=== PATIENT | female | born 1950 | race Caucasian/White ===

== ENCOUNTER 2018-11-17 07:45 | Inpatient (IN) | payer MEDICARE ==
[~2018-11-17] VITALS: Ht 160 cm; Wt 76.9 kg
[~2018-11-17 07:45] MED LIST: ALBU3IS INH; ALBU4; AMLO10 PO; ASPI81CH PO; Accuneb1.25 MG/3 INH; BENZ100A PO; CHLO25B PO; CIFEREX 3,7751 EACH PO; DILTIAZEM 24HR180 MG PO; DULERA 200 MCG/13 GM INH; FLUSAL2505 INH; Hair, Skin & N1 EACH PO; IRBE150 PO; LANS15EC; METO50ER PO; NICO21TP TOP; Omeprazole20 M1 PO; PRED1 PO; Prednisone20 MG PO; ROPI2 PO; SIMV10 PO; TIOT18 INH; Vitamin C100 M1 PO; ZESTORETIC 20-121 EA PO; Zithromax250 MG PO
[2018-11-17 08:14] LABS: BASOPHILS ABSOLUTE AUTO 0.06 K/mm3 (0.00-0.23); BASOPHILS PERCENT AUTO 1 % (0-2); EOSINOPHILS ABSOLUTE AUTO 0.19 K/mm3 (0.00-0.68); EOSINOPHILS PERCENT AUTO 2 % (0-6); Hematocrit 45.2 % (33.0-51.0); Hemoglobin 14.9 g/dL (11.5-16.0); IMMATURE GRAN ABSOLUTE AUTO 0.04 K/mm3 (0.00-0.10); IMMATURE GRAN PERCENT AUTO 0 % (0-1); LYMPHOCYTES ABSOLUTE AUTO 2.35 K/mm3 (0.84-5.20); LYMPHOCYTES PERCENT AUTO 20 % (21-46); MONOCYTES ABSOLUTE AUTO 0.77 K/mm3 (0.16-1.47); MONOCYTES PERCENT AUTO 6 % (4-13); Mean Corpuscular HGB 28.9 pg (26.0-34.0); Mean Corpuscular Volume 88 fL (80-100); Mean Platelet Volume 10.6 fL (9.1-12.4); NEUTROPHILS ABSOLUTE AUTO 8.57 K/mm3 (1.96-9.15); NEUTROPHILS PERCENT AUTO 72 % (41-73); Platelet Count 290 K/mm3 (150-400); RDW Coefficient Variation 13.1 % (11.7-14.2); RDW Standard Deviation 42.5 fL (35.1-46.3); Red Blood Cell Count 5.15 M/mm3 (3.80-5.20); White Blood Cell Count 11.98 K/mm3 (4.00-11.30)
[2018-11-17 08:27] LABS: Alanine Aminotransfer (ALT/SGP 31 U/L (12-78); Albumin, Blood 4.3 g/dL (3.4-5.0); Albumin/Globulin Ratio 1.2 (0.8-1.8); Alk Phos 130 U/L (50-136); Anion Gap 10 mmol/L (6-16); Aspartate Aminotrans (AST/SGOT 22 U/L (12-37); Bilirubin, Total 0.3 mg/dL (0.1-1.0); Blood Urea Nitrogen 12 mg/dL (8-24); CO2, Blood 22 mmol/L (21-32); Calcium, Blood 9.1 mg/dL (8.5-10.1); Chloride, Blood 103 mmol/L (98-108); Creatinine, Blood 0.52 mg/dL (0.40-1.00); Globulin, Blood 3.7 g/dL (2.2-4.0); Glomerular Filtration Rate >60 (60-); Glucose, Blood 138 mg/dL (70-99); Potassium, Blood 4.2 mmol/L (3.5-5.5); Sodium, Blood 135 mmol/L (136-145); Troponin I <0.015 ng/mL (0.000-0.040)
[2018-11-17] MEDS ORDERED: Ropinirole HCl3 MG PO (09:29)
[2018-11-17] MEDS ORDERED: Tessalon200 MG PO (09:30)
[2018-11-17] MEDS ORDERED: DILT180ER PO (09:30)
[2018-11-17 09:55] LABS: Base Excess Venous -2.9 mmol/L; Bicarbonate Venous 22.5 mmol/L (24.0-30.0); PCO2 Venous 36.6 mmHg (38-42); PO2 Venous 182 mmHg (38-42); pH Blood Venous 7.39 (7.34-7.37)
[2018-11-17] MEDS ORDERED: VITAMIN B-121000 MCG PO (13:07)
--- NOTE | 2018-11-17 16:55 | NUR ---
SHIFT SUMMARY Assumed care of pt upon arrival to unit at 1024. Pt arrived wearing BiPAP. Pt given a 15 minute break, and then she requested the BiPAP again. Pt wore BiPAP for another two hours and has been off BiPAP since. Currently on 2 LPM NC. Respirations even and unlabored. Pt OOB several times to use commode. Tolerates activity well. Sinus tachycardia per telemetry. Dr Norman aware. Bed in lowest position. Call light in reach. Will continue to closely monitor until care handoff and bedside report with oncoming RN.
--- NOTE | 2018-11-18 01:03 | NUR ---
CODE STATUS WHEN ATTEMPTING TO PLACE DNR BAND AND VERIFY CODE STATUS WITH PATIENT, SHE STATED THAT SHE WOULD LIKE ALL INTERVENTIONS EXCEPT INTUBATION IF SHE CODES. PATIENT UNDERSTANDS THAT CPR, MEDICATIONS, AND DEFIBRILLATION WILL BE PROVIDED IF SHE CODES, BUT SHE WILL NOT BE INTUBATED- PT VERBALIZES UNDERSTANDING. DR ERICKSON CONTACTED AND CODE STATUS CHANGED TO REFLECT PATIENT'S WISHES. PT ALSO REPORTS THAT HER IRBESARTAN IS TAKEN AT NIGHT WITH A DOSE OF 150 MG. ORDER ALSO CHANGED TO REFLECT PATIENT'S MED RECONCILIATION.
--- NOTE | 2018-11-18 06:16 | NUR ---
SHIFT SUMMARY- PT HAS REMAINED AOX4 THROUGHOUT SHIFT. VSS. PLEASANT AND COOPERATIVE WITH CARE. CONTINUES TO AMBULATE WITH ONE PERSON ASSIST TO THE BEDSIDE COMMODE. PT HAS RESTED WELL THROUGHOUT MUCH OF THE SHIFT WITH BIPAP IN PLACE. BIPAP SETTINGS HAVE REMAINED AT 10/6 25% FIO2. O2 SATS HAVE REMAINED >90% WITH BIPAP OR 2L VIA NASAL CANNULA IN PLACE. PT WITH SLIGHT EXERTIONAL DYSPNEA WHEN AMBULATING, BUT O2 SATS MAINTAINED >90% THROUGHOUT WITH PURSED LIP BREATHING TECHNIQUES. NO OTHER CHANGES NOTED FROM INITIAL ASSESSMENT. WILL CONTINUE TO MONITOR AND REPORT TO ONCOMING RN. BED IN LOWEST POSITION, CALL LIGHT IN REACH.
--- NOTE | 2018-11-18 09:55 | NUR ---
BEGINNING OF SHIFT Assumed care at 0700. Report recieved from Yany STEPHENSON. Pt on 2 LPM NC since beginning of shift. Pt verbalizes desire to take a shower today. Will continue to assess pt's respiratory effort. Call placed to Dr Larson for pt request for new nicotine patch. Bed in lowest position. Call light in reach. Pt denies need at this time.
[2018-11-18 10:17] LABS: BASOPHILS ABSOLUTE AUTO 0.01 K/mm3 (0.00-0.23); BASOPHILS PERCENT AUTO 0 % (0-2); EOSINOPHILS PERCENT AUTO 0 % (0-6); Hematocrit 39.2 % (33.0-51.0); Hemoglobin 13.1 g/dL (11.5-16.0); IMMATURE GRAN ABSOLUTE AUTO 0.06 K/mm3 (0.00-0.10); IMMATURE GRAN PERCENT AUTO 0 % (0-1); LYMPHOCYTES ABSOLUTE AUTO 1.23 K/mm3 (0.84-5.20); LYMPHOCYTES PERCENT AUTO 9 % (21-46); MONOCYTES ABSOLUTE AUTO 0.59 K/mm3 (0.16-1.47); MONOCYTES PERCENT AUTO 4 % (4-13); Mean Corpuscular HGB 29.2 pg (26.0-34.0); Mean Corpuscular HGB Conc 33.4 g/dL (31.5-36.5); Mean Corpuscular Volume 87 fL (80-100); NEUTROPHILS PERCENT AUTO 86 % (41-73); Platelet Count 289 K/mm3 (150-400); RDW Coefficient Variation 13.2 % (11.7-14.2); RDW Standard Deviation 42.1 fL (35.1-46.3); Red Blood Cell Count 4.49 M/mm3 (3.80-5.20); White Blood Cell Count 13.49 K/mm3 (4.00-11.30)
[2018-11-18 10:43] LABS: Alanine Aminotransfer (ALT/SGP 26 U/L (12-78); Albumin, Blood 3.8 g/dL (3.4-5.0); Albumin/Globulin Ratio 1.2 (0.8-1.8); Alk Phos 105 U/L (50-136); Anion Gap 11 mmol/L (6-16); Aspartate Aminotrans (AST/SGOT 19 U/L (12-37); Bilirubin, Total 0.3 mg/dL (0.1-1.0); Blood Urea Nitrogen 20 mg/dL (8-24); Bun/Creatinine Ratio 30.7 (12.0-20.0); CO2, Blood 22 mmol/L (21-32); Calcium, Blood 9.4 mg/dL (8.5-10.1); Chloride, Blood 100 mmol/L (98-108); Creatinine, Blood 0.65 mg/dL (0.40-1.00); Globulin, Blood 3.3 g/dL (2.2-4.0); Glomerular Filtration Rate >60 (60-); Glucose, Blood 210 mg/dL (70-99); Potassium, Blood 4.2 mmol/L (3.5-5.5); Sodium, Blood 133 mmol/L (136-145); Total Protein, Blood 7.1 g/dL (6.4-8.2)
--- NOTE | 2018-11-18 14:52 | NUR ---
UPDATE Pt wore BiPAP for 1.5 hours and then took shower. Tolerated shower fair. Pt has not worn BiPAP since. Pt verbalized concern that she saw a recall for irbesartan on the news. She also mentioned this concern to Dr Larson. This RN spoke to pharmacist, Pardeep, who stated hospital supply is not affected by the recall. Update given to pt and Dr Larson. Pt remains on 2 LPM NC. Remains sinus tachycardia per telemetry.
--- NOTE | 2018-11-18 18:05 | NUR ---
SHIFT SUMMARY No additional changes since last note. Pt resting in bed at this time. Will continue to closely monitor until care handoff and bedside report with oncoming RN.
[2018-11-19 05:48] LABS: BASOPHILS ABSOLUTE AUTO 0.02 K/mm3 (0.00-0.23); BASOPHILS PERCENT AUTO 0 % (0-2); EOSINOPHILS PERCENT AUTO 0 % (0-6); Hematocrit 40.3 % (33.0-51.0); IMMATURE GRAN ABSOLUTE AUTO 0.12 K/mm3 (0.00-0.10); IMMATURE GRAN PERCENT AUTO 1 % (0-1); LYMPHOCYTES PERCENT AUTO 7 % (21-46); MONOCYTES ABSOLUTE AUTO 0.65 K/mm3 (0.16-1.47); MONOCYTES PERCENT AUTO 3 % (4-13); Mean Corpuscular HGB 28.8 pg (26.0-34.0); Mean Corpuscular HGB Conc 32.3 g/dL (31.5-36.5); Mean Corpuscular Volume 89 fL (80-100); Mean Platelet Volume 10.7 fL (9.1-12.4); NEUTROPHILS ABSOLUTE AUTO 17.79 K/mm3 (1.96-9.15); NEUTROPHILS PERCENT AUTO 90 % (41-73); Platelet Count 293 K/mm3 (150-400); RDW Coefficient Variation 13.2 % (11.7-14.2); RDW Standard Deviation 43.3 fL (35.1-46.3); Red Blood Cell Count 4.52 M/mm3 (3.80-5.20); White Blood Cell Count 19.88 K/mm3 (4.00-11.30)
[2018-11-19 06:18] LABS: Alanine Aminotransfer (ALT/SGP 32 U/L (12-78); Albumin, Blood 3.7 g/dL (3.4-5.0); Albumin/Globulin Ratio 1.1 (0.8-1.8); Alk Phos 103 U/L (50-136); Anion Gap 9 mmol/L (6-16); Aspartate Aminotrans (AST/SGOT 27 U/L (12-37); Bilirubin, Total 0.2 mg/dL (0.1-1.0); Blood Urea Nitrogen 25 mg/dL (8-24); Bun/Creatinine Ratio 40.4 (12.0-20.0); CO2, Blood 24 mmol/L (21-32); Calcium, Blood 9.2 mg/dL (8.5-10.1); Chloride, Blood 102 mmol/L (98-108); Creatinine, Blood 0.62 mg/dL (0.40-1.00); Globulin, Blood 3.3 g/dL (2.2-4.0); Glomerular Filtration Rate >60 (60-); Glucose, Blood 149 mg/dL (70-99); Potassium, Blood 4.7 mmol/L (3.5-5.5); Sodium, Blood 135 mmol/L (136-145)
--- NOTE | 2018-11-19 07:16 | NUR ---
SHIFT SUMMARY- PT HAS REMAINED AOX4 THROUGHOUT SHIFT. VSS. PLEASANT AND COOPERATIVE WITH CARE. O2 SATS HAVE REMAINED >90% ON 1L VIA NASAL CANNULA. PT WITH SLIGHT DESATURATION WITH AMBULATION TO THE RESTROOM TO 87-89%, BUT RECOVERS TO >90% WITHIN 1 MINUTE OF REST AND PURSED LIP BREATHING TECHNIQUES. PT REPORTS THAT SHE FEELS THAT HER BREATHING HAS IMPROVED SIGNIFICANTLY SINCE YESTERDAY. PT CONTINUES TO AMBULATE WITH STANDBY ASSIST AND FWW PER HER REQUEST. NO OTHER CHANGES NOTED FROM INITIAL ASSESSMENT. WILL CONTINUE TO MONITOR AND REPORT TO ONCOMING RN. BED IN LOW POSITION, CALL LIGHT IN REACH.
--- NOTE | 2018-11-19 09:26 | NUR ---
BEGINNING OF SHIFT Assumed care of pt at 0700. Report received from Yany STEPHENSON. Pt on 2 LPM [place]. Pt has not worn BiPAP since yesterday morning. Pt OOB to use bathroom. Tolerated activity well. Per Yany RN, pt had questions about code status. This RN informed Ruthie from palliative care that pt would like in-depth discussion about code status. Bed in lowest position. Call light in reach. Pt denies need at this time.
--- NOTE | 2018-11-19 14:38 | NUR ---
Initial Visit: Palliative care received consult for AD/POLST. Pt is alert, oriented. Reviewed current code status (FULL). Discussed intubation, chest compressions, non-invasive airway, PEG tube placement and artificial nutrition. Pt expresses that the doctor was talking to her about that earlier. She feels strongly that she does not want to be intubated, however, she states that chest compressions, defibrilation, artificial nutrition, and non-invasive airway support is ok. Assisted patient to fill out POLST form. She accepts chest compressions that are part of CPR. She accepts limited treatments, and prison artificial nutrition. POLST is filled out and placed in the patient's chart. Reviewed with nurse Kasandra. She is aware POLST is in chart, waiting for doctor review and signature. Call placed to Dr. Larson. Informed of conversation and notified of paperwork in chart that requires signature. Will remain available.
--- NOTE | 2018-11-19 19:38 | NUR ---
SHIFT SUMMARY No acute changes since shift assessment. Pt remains on 2 LPM NC. Pt OOB several times today to use bathroom. Tolerates activity well. No events per telemetry. At this time, pt is medical floor status with telemetry. Report given to oncoming RNYany.
--- NOTE | 2018-11-19 23:30 | NUR ---
PATIENT TRANSFTER PT CURRENTLY AOX4, VSS, ABLE TO TRANSFER WITH STANDBY ASSIST. O2 SATS OF 93% ON 2L VIA NASAL CANNULA. REPORT CALLED TO SEEMA REESE. PT TAKEN TO ROOM 337 VIA WHEELCHAIR BY MILES RITCHIE.
--- NOTE | 2018-11-19 23:36 | NUR ---
PT TRANSFER TOMED FLOOR FROM PCU. I AGREE WITH PRIOR ASSESSMENTS.
[2018-11-20 05:36] LABS: BASOPHILS ABSOLUTE AUTO 0.03 K/mm3 (0.00-0.23); BASOPHILS PERCENT AUTO 0 % (0-2); EOSINOPHILS PERCENT AUTO 0 % (0-6); Hematocrit 39.8 % (33.0-51.0); IMMATURE GRAN ABSOLUTE AUTO 0.22 K/mm3 (0.00-0.10); IMMATURE GRAN PERCENT AUTO 1 % (0-1); LYMPHOCYTES ABSOLUTE AUTO 1.23 K/mm3 (0.84-5.20); LYMPHOCYTES PERCENT AUTO 7 % (21-46); MONOCYTES ABSOLUTE AUTO 0.72 K/mm3 (0.16-1.47); MONOCYTES PERCENT AUTO 4 % (4-13); Mean Corpuscular HGB 28.9 pg (26.0-34.0); Mean Corpuscular HGB Conc 32.7 g/dL (31.5-36.5); Mean Corpuscular Volume 88 fL (80-100); Mean Platelet Volume 11.2 fL (9.1-12.4); NEUTROPHILS PERCENT AUTO 88 % (41-73); Platelet Count 306 K/mm3 (150-400); RDW Coefficient Variation 13.2 % (11.7-14.2); RDW Standard Deviation 43.2 fL (35.1-46.3)
[2018-11-20 05:45] LABS: Anion Gap 9 mmol/L (6-16); Blood Urea Nitrogen 20 mg/dL (8-24); Bun/Creatinine Ratio 34.2 (12.0-20.0); CO2, Blood 25 mmol/L (21-32); Calcium, Blood 9.1 mg/dL (8.5-10.1); Chloride, Blood 102 mmol/L (98-108); Creatinine, Blood 0.59 mg/dL (0.40-1.00); Glomerular Filtration Rate >60 (60-); Glucose, Blood 160 mg/dL (70-99); Potassium, Blood 4.6 mmol/L (3.5-5.5); Sodium, Blood 136 mmol/L (136-145)
--- NOTE | 2018-11-20 06:40 | NUR ---
SHIFT SUMMARY: PT PCU TRANSFER EARLIER IN SHIFT. A&O X 4, INDEPEDENT IN ROOM. ON 2L VIA NC. PT HAS EXTREME COUGHING FITS THAT LAST SEVERAL MINUTES AND CAUSE HIGH BP. SINUS TACH IN 90-100s PER MOISTURE TESTER. 20 G TO L FOREARM SALINE LOCKED. DENIES ACUTE SOB, PT STATES FEELING "ALOT BETTER" AND "READY TO HEAD HOME". WILL CONT TO MONITOR AND PROVIDE CARE UNTIL PRESUMED BY ONCOMING RN.
[2018-11-20] MEDS ORDERED: [UNRECOGNIZED DRUG - CODE] PO (12:54)
[2018-11-20] MEDS ORDERED: LEVFLO500 PO (12:55)
[2018-11-20] MEDS ORDERED: NICO21TP TOP (12:55)
[2018-11-20] MEDS ORDERED: PRED10 PO (12:56)
--- NOTE | 2018-11-20 15:09 | NUR ---
DISCHARGE PT STATE CONTINUING SHORTNESS OF BREATH WITH EXERTION OR COUGH. LUNGS DECREASED WITH RLLEXP WHEEZE, O2 @ 2L BIOX >90%. SHE STATE BREATHING HAS IMPROVED, HOME O2 EVAL COMPLETED & SHE IS HOPEFUL TO GO HOME, STATE HER DAUGHTER WILL BE IN @ 1100 TO PROVIDE TRANSPORT HOME. DR SHARMA & SONI FOLDING MACHINE OPERATOR DL IN TO SEE HER, STATE OK FOR D/C HOME, PLACE ORDERS. IV D/C INTACT. NEW SCR[facility]TS FA[facility]ED TO [facility]. D/C INSTRUCT REVIEWED WITH PT & HER DAUGHTER. [facility] DELIVER PORTABLE O2 @ 1515. CRISTINA PROVIDE W/C ESCORT FROM HOSP. PT IS PLEASANT/APPRECIATIVE.
== END 2018-11-20 15:09 | disposition home or self-care (01) | DRG 189 ==
LOC: ER 07:45 → PCU 08:40 → MEDS 10:20 → PCU 10:37 → MEDS 11-19 23:26 → ENPENDDIS 11-20 12:40 → MEDS 11-20 15:09
PROVIDERS: Family Medicine; Physician Assistant; ADMIT Internal Medicine
DX: J96.01 Acute respiratory failure with hypoxia (principal); J44.1 Chronic obstructive pulmonary disease with (acute) exacerbation; J44.0 Chronic obstructive pulmonary disease with (acute) lower respiratory infection; J20.9 Acute bronchitis, unspecified; I10 Essential (primary) hypertension; F17.210 Nicotine dependence, cigarettes, uncomplicated; Z66 Do not resuscitate; Z88.8 Allergy status to other drugs, medicaments and biological substances; Z79.82 Long term (current) use of aspirin; Z79.899 Other long term (current) drug therapy
CPT/HCPCS: 36415; 71045; 80048; 80053; 82803; 83605; 84484; 85025; 87040; 93005; 93010; 94640; 94660; 94760; 94761; 94762; 96365; 96375; 99285-25; J1650; J1956; J2920; J2930

== ENCOUNTER 2019-10-27 06:36 | Day surgery (SDC) | payer MEDICARE ==
[~2019-10-27] VITALS: Ht 160 cm; Wt 71.5 kg
[~2019-10-27 06:36] MED LIST changes: +Aspirin EC81 MG PO; +DILT180 PO; +DILT180ER PO; +FERSU300 PO; +LEVFLO500 PO; +LOSARTAN POTAS100 MG PO; +PRED10 PO; +PROAIR RESPICL90 MCG; +Requip3 MG PO; +Ropinirole HCl3 MG PO; +Simvastatin10 MG PO; +Tessalon200 MG PO; +VITAMIN B-121000 MCG PO; +VITAMIN D35000 UNI2 PO; +WIXELA 250-501 EACH INH; +[UNRECOGNIZED DRUG - CODE] PO
--- NOTE | 2019-10-27 09:16 | NUR ---
10/27/19 0915 Blanche Luong ANESTHESIA STUDENT MARIA ELENA WAS IN ROOM WITH DR FLORENCE THROUGHOUT THE PROCEDURE
== END 2019-10-27 09:58 | disposition home or self-care (01) ==
LOC: ORSCSDS 06:36
PROVIDERS: Student in an Organized Health Care Education/Training Program
PROC: 0DBL8ZX Excision of Transverse Colon, Via Natural or Artificial Opening Endoscopic, Diagnostic (ICD-10-PCS; principal; 2019-10-27 08:00)
PROC: 0DBM8ZX Excision of Descending Colon, Via Natural or Artificial Opening Endoscopic, Diagnostic (ICD-10-PCS; principal; 2019-10-27 08:00)
PROC: 0DBN8ZX Excision of Sigmoid Colon, Via Natural or Artificial Opening Endoscopic, Diagnostic (ICD-10-PCS; principal; 2019-10-27 08:00)
PROC: 0DBK8ZX Excision of Ascending Colon, Via Natural or Artificial Opening Endoscopic, Diagnostic (ICD-10-PCS; principal; 2019-10-27 08:00)
PROC: 0DBH8ZX Excision of Cecum, Via Natural or Artificial Opening Endoscopic, Diagnostic (ICD-10-PCS; principal; 2019-10-27 08:00)
DX: R19.5 Other fecal abnormalities (principal); D12.3 Benign neoplasm of transverse colon; D12.2 Benign neoplasm of ascending colon; K52.9 Noninfective gastroenteritis and colitis, unspecified; D12.0 Benign neoplasm of cecum; D12.4 Benign neoplasm of descending colon; D12.5 Benign neoplasm of sigmoid colon; K62.1 Rectal polyp; K64.8 Other hemorrhoids; I10 Essential (primary) hypertension; J44.9 Chronic obstructive pulmonary disease, unspecified; Z79.899 Other long term (current) drug therapy; F17.210 Nicotine dependence, cigarettes, uncomplicated; Z99.81 Dependence on supplemental oxygen; E78.5 Hyperlipidemia, unspecified; Z79.82 Long term (current) use of aspirin
CPT/HCPCS: 88305; J0171; J0330; J0461; J2370; J2405; J2704; J7120

== ENCOUNTER → 2019-11-17 | Outpatient (CLI) | payer MEDICARE | END | disposition home or self-care (01) | LOC: LAB EV 12:17 → LAB SHORT 12:17 | DX: N39.0 Urinary tract infection, site not specified (principal) | CPT/HCPCS: 87077; 87086; 87186 ==

== ENCOUNTER 2019-12-29 11:12 | Emergency (ER) | payer MEDICARE ==
[~2019-12-29] VITALS: Ht 160 cm; Wt 72.6 kg
[~2019-12-29 11:12] MED LIST changes: -Aspirin EC81 MG PO; -DILT180 PO; -LOSARTAN POTAS100 MG PO; -PROAIR RESPICL90 MCG; -Requip3 MG PO; -Simvastatin10 MG PO; -VITAMIN D35000 UNI2 PO; -WIXELA 250-501 EACH INH
[2019-12-29 12:30] LABS: BASOPHILS ABSOLUTE AUTO 0.04 K/mm3 (0.00-0.23); BASOPHILS PERCENT AUTO 0 % (0-2); EOSINOPHILS ABSOLUTE AUTO 0.02 K/mm3 (0.00-0.68); EOSINOPHILS PERCENT AUTO 0 % (0-6); Hemoglobin 13.7 g/dL (11.5-16.0); IMMATURE GRAN ABSOLUTE AUTO 0.05 K/mm3 (0.00-0.10); IMMATURE GRAN PERCENT AUTO 0 % (0-1); LYMPHOCYTES ABSOLUTE AUTO 1.24 K/mm3 (0.84-5.20); LYMPHOCYTES PERCENT AUTO 10 % (21-46); MONOCYTES ABSOLUTE AUTO 0.92 K/mm3 (0.16-1.47); MONOCYTES PERCENT AUTO 7 % (4-13); Mean Corpuscular HGB 28.6 pg (26.0-34.0); Mean Corpuscular HGB Conc 32.6 g/dL (31.5-36.5); Mean Corpuscular Volume 88 fL (80-100); Mean Platelet Volume 11.2 fL (9.1-12.4); NEUTROPHILS ABSOLUTE AUTO 10.17 K/mm3 (1.96-9.15); NEUTROPHILS PERCENT AUTO 82 % (41-73); Platelet Count 221 K/mm3 (150-400); RDW Coefficient Variation 13.4 % (11.7-14.2); RDW Standard Deviation 43.4 fL (35.1-46.3); Red Blood Cell Count 4.79 M/mm3 (3.80-5.20); White Blood Cell Count 12.44 K/mm3 (4.00-11.30)
[2019-12-29 12:52] LABS: Alanine Aminotransfer (ALT/SGP 34 U/L (12-78); Albumin, Blood 3.7 g/dL (3.4-5.0); Albumin/Globulin Ratio 1.2 (0.8-1.8); Alk Phos 104 U/L (50-136); Anion Gap 8 mmol/L (6-16); Aspartate Aminotrans (AST/SGOT 26 U/L (12-37); Bilirubin, Total 0.3 mg/dL (0.1-1.0); Blood Urea Nitrogen 8 mg/dL (8-24); Bun/Creatinine Ratio 15.7 (12.0-20.0); CO2, Blood 22 mmol/L (21-32); Calcium, Blood 9.1 mg/dL (8.5-10.1); Chloride, Blood 103 mmol/L (98-108); Creatinine, Blood 0.51 mg/dL (0.40-1.00); Glomerular Filtration Rate >60 (60-); Glucose, Blood 112 mg/dL (70-99); Sodium, Blood 133 mmol/L (136-145); Total Protein, Blood 6.7 g/dL (6.4-8.2)
[2019-12-29 13:09] LABS: Source, Urine Clean Catch
[2019-12-29 13:33] LABS: Appearance, Urine Clear (Clear); Bilirubin, Urine Neg (Neg); Blood, Urine 3+ (Neg); Color, Urine Yellow (P-Yellow); Glucose Qualitative, Urine Neg (Neg); Ketones, Urine Neg (Neg); Leukocyte Esterase, Urine Neg (Neg); Nitrite, Urine Neg (Neg); Protein, Urine Neg (Neg); Specific Gravity, Urine 1.015 (1.003-1.022); Urobilinogen, Urine NORM (Normal)
[2019-12-29 14:16] LABS: Bacteria Few /hpf; Squamous Epithelial Cells Few /hpf (Few); White Blood Cells, Urine 0-2 /hpf (0-5)
[2019-12-29] MEDS ORDERED: Pepcid20 MG PO (14:27)
[2019-12-30] MEDS ORDERED: TIOT18 INH (13:22)
[2019-12-30] MEDS ORDERED: DILTIAZEM 24HR180 M3 PO (13:22)
[2019-12-30] MEDS ORDERED: Duoneb 2.5-0.5 M3 ML NEB (13:23)
[2019-12-30] MEDS ORDERED: Ropinirole HCl3 MG PO (13:24)
[2019-12-30] MEDS ORDERED: Requip3 MG PO (13:24)
[2019-12-30] MEDS ORDERED: LOSARTAN POTAS100 MG PO (13:25)
[2019-12-30] MEDS ORDERED: WIXELA 250-501 EACH INH (13:25)
[2019-12-30] MEDS ORDERED: Simvastatin10 MG PO (13:26)
[2019-12-30] MEDS ORDERED: ALBU90OI INH (13:26)
[2019-12-30] MEDS ORDERED: Aspirin EC81 MG PO (13:29)
[2019-12-30] MEDS ORDERED: VITAMIN D35000 UNI2 PO (13:29)
== END 2019-12-29 14:29 | disposition home or self-care (01) ==
LOC: ER 11:12
PROVIDERS: Physician Assistant
DX: K62.5 Hemorrhage of anus and rectum (principal); J44.9 Chronic obstructive pulmonary disease, unspecified; I10 Essential (primary) hypertension; Z88.8 Allergy status to other drugs, medicaments and biological substances; Z79.82 Long term (current) use of aspirin; Z79.899 Other long term (current) drug therapy; Z79.51 Long term (current) use of inhaled steroids
CPT/HCPCS: 36415; 80053; 81001; 85025; 86850; 86900; 86901; 93005; 93010; 99283-25

== ENCOUNTER 2019-12-30 10:43 | Inpatient (IN) | payer MEDICARE ==
[~2019-12-30] VITALS: Ht 160 cm; Wt 74.0 kg
[~2019-12-30 10:43] MED LIST changes: +Pepcid20 MG PO
[2019-12-30 11:28] LABS: BASOPHILS ABSOLUTE AUTO 0.03 K/mm3 (0.00-0.23); BASOPHILS PERCENT AUTO 0 % (0-2); EOSINOPHILS PERCENT AUTO 0 % (0-6); Hematocrit 42.1 % (33.0-51.0); IMMATURE GRAN ABSOLUTE AUTO 0.04 K/mm3 (0.00-0.10); IMMATURE GRAN PERCENT AUTO 0 % (0-1); LYMPHOCYTES ABSOLUTE AUTO 0.96 K/mm3 (0.84-5.20); LYMPHOCYTES PERCENT AUTO 8 % (21-46); MONOCYTES ABSOLUTE AUTO 0.71 K/mm3 (0.16-1.47); MONOCYTES PERCENT AUTO 6 % (4-13); Mean Corpuscular HGB 28.5 pg (26.0-34.0); Mean Corpuscular HGB Conc 33.3 g/dL (31.5-36.5); Mean Corpuscular Volume 86 fL (80-100); Mean Platelet Volume 10.9 fL (9.1-12.4); NEUTROPHILS PERCENT AUTO 86 % (41-73); Platelet Count 224 K/mm3 (150-400); RDW Coefficient Variation 13.2 % (11.7-14.2); RDW Standard Deviation 41.5 fL (35.1-46.3); Red Blood Cell Count 4.91 M/mm3 (3.80-5.20); White Blood Cell Count 12.54 K/mm3 (4.00-11.30)
[2019-12-30 11:41] LABS: Alanine Aminotransfer (ALT/SGP 36 U/L (12-78); Albumin, Blood 3.9 g/dL (3.4-5.0); Albumin/Globulin Ratio 1.3 (0.8-1.8); Alk Phos 105 U/L (50-136); Anion Gap 6 mmol/L (6-16); Aspartate Aminotrans (AST/SGOT 31 U/L (12-37); Bilirubin, Total 0.3 mg/dL (0.1-1.0); Blood Urea Nitrogen 9 mg/dL (8-24); Bun/Creatinine Ratio 18.2 (12.0-20.0); CO2, Blood 25 mmol/L (21-32); Calcium, Blood 9.1 mg/dL (8.5-10.1); Chloride, Blood 101 mmol/L (98-108); Creatinine, Blood 0.49 mg/dL (0.40-1.00); Globulin, Blood 3.1 g/dL (2.2-4.0); Glomerular Filtration Rate >60 (60-); Glucose, Blood 127 mg/dL (70-99); Potassium, Blood 4.1 mmol/L (3.5-5.5); Sodium, Blood 132 mmol/L (136-145)
[2019-12-30] MEDS ORDERED: DILTIAZEM 24HR180 M3 PO (13:22)
[2019-12-30] MEDS ORDERED: TIOT18 INH (13:22)
[2019-12-30] MEDS ORDERED: Duoneb 2.5-0.5 M3 ML NEB (13:23)
[2019-12-30] MEDS ORDERED: Ropinirole HCl3 MG PO (13:24)
[2019-12-30] MEDS ORDERED: Requip3 MG PO (13:24)
[2019-12-30] MEDS ORDERED: LOSARTAN POTAS100 MG PO (13:25)
[2019-12-30] MEDS ORDERED: WIXELA 250-501 EACH INH (13:25)
[2019-12-30] MEDS ORDERED: Simvastatin10 MG PO (13:26)
[2019-12-30] MEDS ORDERED: ALBU90OI INH (13:26)
[2019-12-30] MEDS ORDERED: VITAMIN D35000 UNI2 PO (13:29)
[2019-12-30] MEDS ORDERED: Aspirin EC81 MG PO (13:29)
--- NOTE | 2019-12-30 19:07 | NUR ---
PT ALERT AND ORIENTED, PT IS HERE FOR CHEST PAIN/ACUTE HYPOXIA RESPIRATORY FAILURE. PT HRR UPON ARRIVAL TO THE UNIT 100'S-110'S SINUS TACH, PT DENIES CHEST PAIN/PRESSURE AT THIS TIME, REPORTED HER LAST WAS IN THE ER AND WAS ACTUALLY JUST SLIGHT PRESSURE ON THE CHEST. TROP ELEVATED @ 1.10 TREND DOWN TO 0.641. PT CURRENTLY ON 3L OF O2 SATS KEPT ABOVE 90%, DYSPNEA ON EXERTION NOTED, INCREASED RR. BREATHING TX PER RT EFFECTIVE. TO GIVE REPORT TO ONCOMING SHIFT.
[2019-12-30 22:53] LABS: Adenovirus Not Detected (NOT DETECT); Coronavirus 229E Not Detected (NOT DETECT); Coronavirus HKU1 Not Detected (NOT DETECT); Coronavirus NL63 Not Detected (NOT DETECT); Coronavirus OC43 Not Detected (NOT DETECT)
[2019-12-30 22:54] LABS: Bordetella pertussis Not Detected (NOT DETECT); Chlamydophila pneumoniae Not Detected (NOT DETECT); Human Metapneumovirus Not Detected (NOT DETECT); Human Rhinovirus/Enterovirus Not Detected (NOT DETECT); Influenza A/2009-H1 Detected (NOT DETECT); Influenza A/H1 Not Detected (NOT DETECT); Influenza A/H3 Not Detected (NOT DETECT); Influenza B Not Detected (NOT DETECT); Mycoplasma pneumoniae Not Detected (NOT DETECT); Parainfluenza Virus 1 Not Detected (NOT DETECT); Parainfluenza Virus 2 Not Detected (NOT DETECT); Parainfluenza Virus 3 Not Detected (NOT DETECT); Parainfluenza Virus 4 Not Detected (NOT DETECT); Respiratory Syncytial Virus Not Detected (NOT DETECT)
[2019-12-31 01:44] LABS: BASOPHILS ABSOLUTE AUTO 0.01 K/mm3 (0.00-0.23); BASOPHILS PERCENT AUTO 0 % (0-2); EOSINOPHILS PERCENT AUTO 0 % (0-6); Hematocrit 41.4 % (33.0-51.0); Hemoglobin 13.6 g/dL (11.5-16.0); IMMATURE GRAN ABSOLUTE AUTO 0.03 K/mm3 (0.00-0.10); IMMATURE GRAN PERCENT AUTO 0 % (0-1); LYMPHOCYTES ABSOLUTE AUTO 0.59 K/mm3 (0.84-5.20); LYMPHOCYTES PERCENT AUTO 5 % (21-46); MONOCYTES ABSOLUTE AUTO 0.08 K/mm3 (0.16-1.47); MONOCYTES PERCENT AUTO 1 % (4-13); Mean Corpuscular HGB 28.8 pg (26.0-34.0); Mean Corpuscular HGB Conc 32.9 g/dL (31.5-36.5); Mean Corpuscular Volume 88 fL (80-100); Mean Platelet Volume 10.8 fL (9.1-12.4); NEUTROPHILS PERCENT AUTO 94 % (41-73); Platelet Count 202 K/mm3 (150-400); Red Blood Cell Count 4.72 M/mm3 (3.80-5.20); White Blood Cell Count 11.11 K/mm3 (4.00-11.30)
[2019-12-31 02:01] LABS: Alanine Aminotransfer (ALT/SGP 36 U/L (12-78); Albumin, Blood 3.5 g/dL (3.4-5.0); Albumin/Globulin Ratio 1.1 (0.8-1.8); Alk Phos 99 U/L (50-136); Anion Gap 10 mmol/L (6-16); Aspartate Aminotrans (AST/SGOT 37 U/L (12-37); Bilirubin, Total 0.2 mg/dL (0.1-1.0); Blood Urea Nitrogen 14 mg/dL (8-24); CHOL/HDL RATIO 2.3; CO2, Blood 22 mmol/L (21-32); Calcium, Blood 9.1 mg/dL (8.5-10.1); Chloride, Blood 100 mmol/L (98-108); Cholesterol 119 mg/dL (50-200); Creatinine, Blood 0.48 mg/dL (0.40-1.00); Globulin, Blood 3.3 g/dL (2.2-4.0); Glomerular Filtration Rate >60 (60-); Glucose, Blood 182 mg/dL (70-99); HDL Cholesterol 52 mg/dL (>39); Low Density Lipoprotein Chol 52 mg/dL (0-110); Potassium, Blood 3.9 mmol/L (3.5-5.5); Sodium, Blood 132 mmol/L (136-145); Total Protein, Blood 6.8 g/dL (6.4-8.2); Triglycerides 76 mg/dL (30-160); Very Low Density Lipoprot Chol 15 mg/dL (6-32)
--- NOTE | 2019-12-31 05:04 | NUR ---
SHIFT SUMMARY: PATIENT ALERT AND ORIENTED ALL SHIFT, NAPPED INTEMITTENTLY. PATIENT VERY DYSPNIC WITH ANY MOVEMENT, X3 PRN BREATHING TREATMENTS. TROPONINS TRENDING DOWN, PATIENT POSITIVE FOR H1N1, NEW SPUTUM SAMPLE NEEDED. VSS, CALL LIGHT WITHIN REACH, BED LOW AND LOCKED.
--- NOTE | 2019-12-31 08:20 | NUR ---
ASSUMPTION OF CARE RECEIVED REPORT AROUND 0710. PT AAOX4. VS STABLE. PT ON 3L O2 VIA NC, PULSE OX 96%. NO S/S OF DISTRESS; PT DENIES ANY C/O CHEST PAIN/PRESSURE. PT DENIES SOB AT THIS TIME, BUT DEFINITELY PRESENTS W/ SOB UPON MINIMAL EXERTION. PLAN TO CONTINUE W/ IV STEROIDS & ABX. DROPLET ISOLATION PRECAUTIONS IN PLACE FOR POSITIVE H1N1. BED LOCKED & IN LOWEST POSITION, CALL GRANDE W/ IN REACH. WILL CONTINUE TO MONITOR.
--- NOTE | 2019-12-31 17:32 | NUR ---
SHIFT SUMMARY NO ACUTE CHANGES THROUGHOUT SHIFT. VS REMAIN STABLE. PT DENIED ANY C/O CHEST PAIN/PRESSURE. STILL W/ SOB ON EXERTION, BUT RESTING COMFORTABLY AT THIS TIME, 3L NC IN PLACE. DR. CHEN IN TO SPEAK W/ PT TODAY REGARDING MILD MT; PLAN IS TO CONTINUE W/ MEDICAL MANAGEMENT GIVEN PT IS NO LONGER SYMPTOMATIC & HER RECENT HX OF GI BLEED. PT TO CONTINUE IV STEROIDS & ABX. BED LOCKED & IN LOWEST POSITION, CALL GRANDE W/ IN REACH. WILL CONTINUE TO MONITOR.
--- NOTE | 2019-12-31 18:43 | NUR ---
New ANCELMO completed with Daphne. She would like to be DNR/DNI limited interventions. POLST awating physician's signature.
--- NOTE | 2019-12-31 19:15 | NUR ---
RECEIVED REPORT FROM SEEMA COLBY. ASSUMED CARE OF PT. RESTING IN BED COMFORTABLY AT THIS TIME, IN NO ACUTE DISTRESS. CONCRETE MIXER AT THE BEDSIDE AT THIS TIME. CALL LIGHT IN REACH, WILL CONTINUE TO MONITOR.
--- NOTE | 2020-01-01 01:30 | NUR ---
UPDATE: THIS RN NOTIFIED BY [employer] CONSULTANT OF PT'S HEART RATE INCREASING TO 160'S. PT ASYMPTOMATIC. WILL CONTINUE TO MONITOR.
--- NOTE | 2020-01-01 07:28 | NUR ---
SHIFT SUMMARY: PT RESTING IN BED COMFORTABLY, IN NO ACUTE DISTRESS. NO ACUTE EVENTS NOTED T/O SHIFT, VS AND O2 SATS STABLE. SLEPT T/O NIGHT. CALL LIGHT AND POSSESSIONS IN REACH, REPORTED OFF TO SEEMA CHAPIN.
--- NOTE | 2020-01-01 07:51 | NUR ---
pt sitting up on the side of the bed recieving a breathing tx. a/ox3, pleasant and cooperative with care, follows commands well, denies any complaints of pain, lungs are dim, with exp wheezing t/o, resp even and unlabored, becomes sob with activity, but reports she is breathing easier today, reports a productive cough of clear sputum, is currently on 3 liters 02 via n/c, is home o2 dep, hrr, tele in place running sr to st per tele, no edema noted, ppp+2, cap refill <3sec, vs stable, afebrile, iv site is clear and patent, btx4, abd flat soft nontender, voids without diff, skin c/w/d, daniel, baylee, call light in reach.
[2020-01-01 09:40] LABS: BASOPHILS ABSOLUTE AUTO 0.03 K/mm3 (0.00-0.23); BASOPHILS PERCENT AUTO 0 % (0-2); EOSINOPHILS PERCENT AUTO 0 % (0-6); Hematocrit 41.4 % (33.0-51.0); Hemoglobin 13.4 g/dL (11.5-16.0); IMMATURE GRAN ABSOLUTE AUTO 0.28 K/mm3 (0.00-0.10); IMMATURE GRAN PERCENT AUTO 1 % (0-1); LYMPHOCYTES ABSOLUTE AUTO 1.01 K/mm3 (0.84-5.20); LYMPHOCYTES PERCENT AUTO 4 % (21-46); MONOCYTES ABSOLUTE AUTO 0.86 K/mm3 (0.16-1.47); MONOCYTES PERCENT AUTO 3 % (4-13); Mean Corpuscular HGB 28.1 pg (26.0-34.0); Mean Corpuscular HGB Conc 32.4 g/dL (31.5-36.5); Mean Corpuscular Volume 87 fL (80-100); Mean Platelet Volume 11.8 fL (9.1-12.4); NEUTROPHILS ABSOLUTE AUTO 25.63 K/mm3 (1.96-9.15); NEUTROPHILS PERCENT AUTO 92 % (41-73); Platelet Count 248 K/mm3 (150-400); RDW Standard Deviation 41.2 fL (35.1-46.3); Red Blood Cell Count 4.77 M/mm3 (3.80-5.20); White Blood Cell Count 27.81 K/mm3 (4.00-11.30)
--- NOTE | 2020-01-01 10:22 | NUR ---
pt complaining of sob, thought she was on 2 liters 02, she is on 3, turned heat down in room and provided a fan, called for a breathing tx, she states the fan helped a lot, call light in reach.
[2020-01-01 10:33] LABS: Anion Gap 10 mmol/L (6-16); Blood Urea Nitrogen 17 mg/dL (8-24); Bun/Creatinine Ratio 40.3 (12.0-20.0); CO2, Blood 22 mmol/L (21-32); Calcium, Blood 9.5 mg/dL (8.5-10.1); Chloride, Blood 101 mmol/L (98-108); Creatinine, Blood 0.42 mg/dL (0.40-1.00); Glomerular Filtration Rate >60 (60-); Glucose, Blood 133 mg/dL (70-99); Potassium, Blood 4.4 mmol/L (3.5-5.5); Sodium, Blood 133 mmol/L (136-145); Troponin I 0.106 ng/mL (0.000-0.040)
--- NOTE | 2020-01-01 12:04 | NUR ---
pt will be discharged later this afternoon. she is aware and feels like she is able to go home. no needs at this time, call light in reach.
[2020-01-01] MEDS ORDERED: Acetaminophen325 M1 PO (15:04)
[2020-01-01] MEDS ORDERED: AZIT250 PO (15:05)
[2020-01-01] MEDS ORDERED: FAMO20 PO (15:06)
[2020-01-01] MEDS ORDERED: GUAI600T33 PO (15:06)
[2020-01-01] MEDS ORDERED: OSEL75CA PO (15:07)
[2020-01-01] MEDS ORDERED: DELTASONE20 MG PO (15:12)
--- NOTE | 2020-01-01 16:25 | NUR ---
pt has been discharged to home, went over instructions with her, she verbalized understanding. iv removed intact. [facility]. pt daughter here to take her home, gave her hard copy of ativan to fill for her mom. pt left with her belongings via wheelchair with stewarding supervisor in attendence.
== END 2020-01-01 16:34 | disposition home or self-care (01) | DRG 280 ==
LOC: ER 10:43 → PCU 13:19 → ERHOLD 13:19 → PCU 17:09
PROVIDERS: Emergency Medicine; ADMIT Family Medicine
DX: I21.4 Non-ST elevation (NSTEMI) myocardial infarction (principal); J96.21 Acute and chronic respiratory failure with hypoxia; J10.00 Influenza due to other identified influenza virus with unspecified type of pneumonia; J44.1 Chronic obstructive pulmonary disease with (acute) exacerbation; Z79.82 Long term (current) use of aspirin; I10 Essential (primary) hypertension; F17.210 Nicotine dependence, cigarettes, uncomplicated; E78.5 Hyperlipidemia, unspecified; I35.0 Nonrheumatic aortic (valve) stenosis; Z99.81 Dependence on supplemental oxygen; E66.9 Obesity, unspecified; G25.81 Restless legs syndrome; Z88.8 Allergy status to other drugs, medicaments and biological substances; Z66 Do not resuscitate; Z68.28 Body mass index [BMI] 28.0-28.9, adult
CPT/HCPCS: 0099U; 36415; 71046; 80048; 80053; 80061; 83880; 84484; 85025; 87070; 87077; 87186; 87205; 93005; 93010; 93306; 94640; 94760; 94762; 96374; 96375; 99285-25; A9270; A9270-GY; J0456; J0696; J1644; J2405; J2930; J7050

== ENCOUNTER 2020-12-27 08:07 | Day surgery (SDC) | payer MEDICARE ==
[~2020-12-27] VITALS: Ht 160 cm; Wt 68.9 kg
[~2020-12-27 08:07] MED LIST changes: +ALBU90OI INH; +AZIT250 PO; +Acetaminophen325 M1 PO; +Aspirin EC81 MG PO; +DELTASONE20 MG PO; +DILTIAZEM 24HR180 M3 PO; +Duoneb 2.5-0.5 M3 ML NEB; +FAMO20 PO; +GUAI600T33 PO; +LOSARTAN POTAS100 MG PO; +OSEL75CA PO; +Requip3 MG PO; +Simvastatin10 MG PO; +VITAMIN D35000 UNI2 PO; +WIXELA 250-501 EACH INH
--- NOTE | 2020-12-27 08:47 | NUR ---
12/27/20 0847 Lissa Harris 1 TRY RIGHT HAND BLEW
== END 2020-12-27 11:28 | disposition home or self-care (01) ==
LOC: ORSCSDS 08:07
PROVIDERS: Student in an Organized Health Care Education/Training Program
PROC: 0DBK8ZX Excision of Ascending Colon, Via Natural or Artificial Opening Endoscopic, Diagnostic (ICD-10-PCS; principal; 2020-12-27 09:30)
PROC: 0DBH8ZX Excision of Cecum, Via Natural or Artificial Opening Endoscopic, Diagnostic (ICD-10-PCS; principal; 2020-12-27 09:30)
PROC: 0DBN8ZX Excision of Sigmoid Colon, Via Natural or Artificial Opening Endoscopic, Diagnostic (ICD-10-PCS; principal; 2020-12-27 09:30)
PROC: 0DBL8ZX Excision of Transverse Colon, Via Natural or Artificial Opening Endoscopic, Diagnostic (ICD-10-PCS; principal; 2020-12-27 09:30)
PROC: 0DBM8ZX Excision of Descending Colon, Via Natural or Artificial Opening Endoscopic, Diagnostic (ICD-10-PCS; principal; 2020-12-27 09:30)
DX: Z86.010 Personal history of colon polyps (principal); D12.2 Benign neoplasm of ascending colon; D12.0 Benign neoplasm of cecum; D12.3 Benign neoplasm of transverse colon; D12.4 Benign neoplasm of descending colon; I10 Essential (primary) hypertension; K57.30 Diverticulosis of large intestine without perforation or abscess without bleeding; K64.8 Other hemorrhoids; J44.9 Chronic obstructive pulmonary disease, unspecified; F17.210 Nicotine dependence, cigarettes, uncomplicated; Z99.81 Dependence on supplemental oxygen; Z79.899 Other long term (current) drug therapy; Z79.82 Long term (current) use of aspirin
CPT/HCPCS: J2370; J2405; J2704; J7120

== ENCOUNTER 2021-10-03 10:18 | Day surgery (SDC) | payer MEDICARE ==
[~2021-10-03] VITALS: Ht 160 cm; Wt 69.9 kg
== END 2021-10-03 13:40 | disposition home or self-care (01) ==
LOC: ORSCSDS 10:18
DX: Z12.11 Encounter for screening for malignant neoplasm of colon (principal); Z86.010 Personal history of colon polyps; Z80.0 Family history of malignant neoplasm of digestive organs; D12.3 Benign neoplasm of transverse colon; D12.2 Benign neoplasm of ascending colon; D12.0 Benign neoplasm of cecum; D12.4 Benign neoplasm of descending colon; J44.9 Chronic obstructive pulmonary disease, unspecified; I10 Essential (primary) hypertension; Z79.899 Other long term (current) drug therapy
CPT/HCPCS: 88305; J2704; J7040; J7120